=== PATIENT | male | born 1955 | race Caucasian/White ===

== ENCOUNTER 2022-07-18 11:50 | Outpatient (CLI) | payer MEDICARE, SELFPAY ==
[2022-07-18 19:31] LABS: Uric Acid 8.1 mg/dL (3.5-8.5)
== END 2022-07-18 11:51 | disposition home or self-care (01) ==
LOC: ANHGOSHLAB 11:55
PROVIDERS: PCP Emergency Medicine; Visit Provider Emergency Medicine
DX: M25.561 Pain in right knee (principal)
CPT/HCPCS: 36415; 84550

== ENCOUNTER → 2022-07-18 12:11 | Outpatient (CLI) | payer MEDICARE, SELFPAY ==
--- NOTE | ~2022-07-18 | XR_ITS ---
EXAMINATION: XR knee RT min 4V DATE: 07/18/2022 12:44 INDICATION: Right knee pain TECHNIQUE: Anteroposterior, 2 oblique and crosstable lateral views of the right knee were obtained COMPARISON: None. FINDINGS: Alignment is normal. No fracture. Joint spaces appear relatively preserved on nonweightbearing imagin g. There is chondrocalcinosis of both the medial and lateral compartments. No joint effusion/layering lipohemarthrosis. Prominent enthesophytes at the inferior patellar insertions of the distal quadrice ps and proximal patellar tendons. Vascular calcifications along the arteries of the distal thigh and proximal calf. Mild prepatellar soft tissue swelling. IMPRESSION: 1. No right knee joint effusion or acute osseous abnormalities. 2. Chondrocalcinosis at the medial lateral compartments of the right knee. Reviewed, dictated and finalized at location A.
== END ==
PROVIDERS: PCP Emergency Medicine; Visit Provider Emergency Medicine
DX: M11.261 Other chondrocalcinosis, right knee (principal); M79.89 Other specified soft tissue disorders
CPT/HCPCS: 36415; 73564; 84550

== ENCOUNTER 2022-07-28 09:16 | Outpatient (RCR) | payer MEDICARE, SELFPAY ==
[2022-07-28 09:30] VITALS: BMI 27.4
== END 2022-10-19 07:35 | disposition home or self-care (01) ==
LOC: ANHWOC 09:16
PROVIDERS: PCP Emergency Medicine; Visit Provider Emergency Medicine
DX: L97.519 Non-pressure chronic ulcer of other part of right foot with unspecified severity (principal); I73.9 Peripheral vascular disease, unspecified
CPT/HCPCS: 99213; A9270; G0463

== ENCOUNTER 2022-10-31 10:46 | Outpatient (CLI) | payer MEDICARE, SELFPAY ==
[2022-10-31 18:58] LABS: Alanine Aminotransferase 43 U/L (6-50); Albumin Level 4.5 g/dL (3.5-5.1); Alkaline Phosphatase 44 U/L (38-126); Anion Gap 12 mmol/L (8-16); Aspartate Amino Transferase 45 U/L (17-59); Bilirubin,Total 0.5 mg/dL (0.2-1.3); Blood Urea Nitrogen 33 mg/dL (9-20); Calcium 10.1 mg/dL (8.4-10.2); Carbon Dioxide 24 mmol/L (22-30); Chloride 104 mmol/L (98-107); Estimated Glomerular Filt Rate > 60; Glucose 149 mg/dL (65-110); Potassium 4.1 mmol/L (3.4-5.0); Sodium 140 mmol/L (137-145); Uric Acid 8.7 mg/dL (3.5-8.5)
[2022-10-31 19:13] LABS: Parathyroid Intact 11.1 pg/mL (7.5-53.5)
[2022-10-31 19:28] LABS: Prostate Specific Antigen 0.2 ng/mL (< OR = 4.0)
== END 2022-10-31 10:47 | disposition home or self-care (01) ==
LOC: ANHGOSHLAB 10:48
PROVIDERS: PCP Emergency Medicine; Visit Provider Emergency Medicine
DX: E83.52 Hypercalcemia (principal); Z12.5 Encounter for screening for malignant neoplasm of prostate; M25.561 Pain in right knee
CPT/HCPCS: 36415; 80053; 83970; 84153; 84550; G0103